=== PATIENT | female | born 1950 | race Caucasian/White ===

== ENCOUNTER → 2018-05-15 | Outpatient (CLI) | payer OTHER | LOC: BRMIMAGING 13:41 | DX: Z12.31 Encounter for screening mammogram for malignant neoplasm of breast (principal) ==

== ENCOUNTER → 2018-06-05 | Outpatient (CLI) | payer OTHER | LOC: BRMIMAGING 09:02 | DX: R92.8 Other abnormal and inconclusive findings on diagnostic imaging of breast (principal) ==